=== PATIENT | male | born 1980 | race Caucasian/White ===

== ENCOUNTER 2016-08-01 11:31 | Outpatient (CLI) | payer BC ==
[~2016-08-01] VITALS: Ht 175.3 cm; Wt 105.2 kg
[~2016-08-01 11:31] MED LIST: MTH10T PO; ONDAN4ODT PO
[2016-08-01 11:47] VITALS: BP 139/90
[2016-08-01] MEDS ORDERED: METH10TA2 PO (11:51)
[2016-08-01] MEDS ORDERED: LISI10TA2 PO (11:51)
[2016-08-01 12:18] LABS: BASOPHILS % (AUTO) 1 % (0-10); EOSINOPHILS # (AUTO) 0.1 10^3/uL (0.0-0.3); EOSINOPHILS % (AUTO) 2 % (0-10); LYMPHOCYTES # (AUTO) 2.3 X 10^3 (1.0-4.0); LYMPHOCYTES % (AUTO) 38 % (12-44); MEAN CORPUSCULAR HEMOGLOBIN 26 PG (25-34); MEAN CORPUSCULAR HGB CONC 35 G/DL (32-36); MEAN CORPUSCULAR VOLUME 75 FL (80-99); MEAN PLATELET VOLUME 10.4 FL (7.4-10.4); MONOCYTES # (AUTO) 0.5 X 10^3 (0.0-1.0); MONOCYTES % (AUTO) 7 % (0-12); NEUTROPHILS # (AUTO) 3.3 X 10^3 (1.8-7.8); NEUTROPHILS % (AUTO) 52 % (42-75); PLATELET COUNT 214 10^3/uL (130-400); RED BLOOD COUNT 5.17 10^6/uL (4.35-5.85); RED CELL DISTRIBUTION WIDTH 13.9 % (10.0-14.5); WHITE BLOOD COUNT 6.2 10^3/uL (4.3-11.0)
== END 2016-08-01 12:00 | disposition home or self-care (01) ==
LOC: PREOP 11:31
PROVIDERS: ATTEND Surgery
DX: Z01.812 Encounter for preprocedural laboratory examination (principal); Z11.2 Encounter for screening for other bacterial diseases; K40.90 Unilateral inguinal hernia, without obstruction or gangrene, not specified as recurrent
CPT/HCPCS: 36415; 85025; 87081

== ENCOUNTER 2016-08-06 08:39 | Day surgery (SDC) | payer BC ==
[~2016-08-06] VITALS: Ht 175.3 cm; Wt 105.2 kg
[~2016-08-06 08:39] MED LIST changes: +LISI10TA2 PO; +METH10TA2 PO
[2016-08-06] MEDS ORDERED: proPOfol 200 MG/20 ML (DIPRIVAN) VIAL IV ONE (08:49)
[2016-08-06] MEDS ORDERED: LIDOCAINE PF 2% 10 ML (XYLOCAINE) AMP ONE (08:49)
[2016-08-06] MEDS ORDERED: fentaNYL INJECTION 100 MCG/2 ML AMP ONE (08:49)
[2016-08-06] MEDS ORDERED: ONDANSETRON 4 MG/2 ML (SDV) Z0FRAN ONE ×2 (08:49→11:01)
[2016-08-06] MEDS ORDERED: ROCURONIUM 50 MG/5 ML (ZEMURON) VIAL IV ONE (08:49)
[2016-08-06] MEDS ORDERED: LACTATED RINGERS 1,000 ML IV ONE ×2 (08:49→10:43)
[2016-08-06] MEDS ORDERED: MIDAZOLAM 2 MG/2 ML (VERSED) VIAL ONE (08:50)
[2016-08-06] MEDS ORDERED: ceFAZolin 2 GM/50 ML NS 50 ML IV ONE (08:54)
--- OUTSIDE RECORDS SUMMARY | 2016-08-06 08:56 | XMS REPORT | Continuity of Care Document ---
Author Author [facility] Organization [facility] Address Unknown Phone Unavailable Care Team Providers Care Box Liner Name Role Phone RYLEE GROVER MD PCP Insurance Providers Payer Name Policy Number Subscriber Name Relationship [facility] [id number] Юлия Espinoza L 01 Advance Directives Directive Response Recorded Date/Time Advance Directives No 08/01/16 11:48am Resuscitation Status Full Code 08/01/16 11:48am Problems Active Problems Medical Problem Onset Date Status Finger laceration Unknown Acute Medications Current Home Medications Medication Dose Units Route Directions Days/Qty Instructions Start Date Methadone Hcl 10 Mg 30 Mg Oral Daily take 3 (10mg) tabs 08/01/16 Lisinopril 10 Mg 10 Mg Oral Daily 08/01/16 Past Home Medications Medication Directions Ordered Status Methadone Hcl 10 Mg Tab, 4 Tab Oral Twice A Day 09/22/10 Discontinued Ondansetron Hcl 4 Mg Tab, 4 Mg Oral Every 4HRS 09/22/10 Discontinued Social History Social History Problem Response Recorded Date/Time Alcohol Use Denies Use 04/05/2015 12:01am Recreational Drug Use No 04/05/2015 12:01am Recent Foreign Travel No 08/01/2016 11:47am Recent Infectious Disease Exposure No 08/01/2016 11:47am Smoking Status Never a Smoker 08/01/2016 11:48am Do you dip or chew tobacco? No 04/05/2015 12:01am Recent Hopitalizations No 08/01/2016 11:48am Query Response Start Date Stop Date Smoking Status Never a Smoker Hospital Discharge Instructions No hospital discharge instructions. Plan of Care Discharge Date 08/01/16 12:00pm Prescriptions See Medication Section Functional Status No functional status results. Allergies, Adverse Reactions, Alerts Allergen Type Severity Reaction Status Last Updated Penicillins ([id number]) Allergy Unknown Active 04/05/15 Immunizations No immunization records. Vital Signs Acute Vital Signs Vital Response Date/Time Pulse Rate (adult) 80 bpm (60 - 90) 08/01/2016 11:47am O2 Sat by Pulse Oximetry 98 % (88 - 100) 08/01/2016 11:47am Blood Pressure 139/90 mm Hg 08/01/2016 11:47am Blood Pressure Mean 106 mm Hg 08/01/2016 11:47am Pain Numeric Pain Scale 2 08/01/2016 11:47am Height (Feet) 5 feet 08/01/2016 11:47am Height (Inches) 9.00 inches 08/01/2016 11:47am Height (Calculated Centimeters) 175.346040 cm 08/01/2016 11:47am Weight (Pounds) 232 pounds 08/01/2016 11:47am Weight (Ounces) 0.0 oz 08/01/2016 11:47am Weight (Calculated Grams) 530614.43 gm 08/01/2016 11:47am Weight (Calculated Kilograms) 105.509288 kilograms 08/01/2016 11:47am Calculated BMI 34.3 08/01/2016 11:47am Results Laboratory Results Test Name Result Units Flags Reference Collection Date/Time Result Date/ Time Comments White Blood Count 6.2 10^3/uL 4.3-11.0 08/01/2016 11:m 08/01/2016 12 :19pm Red Blood Count 5.17 10^6/uL 4.35-5.85 08/01/2016 11:m 08/01/2016 12 :19pm Hemoglobin 13.6 G/DL 13.3-17.7 08/01/2016 11:08/01/2016 12:19pm Hematocrit 39 % L 40-54 08/01/2016 11:17am 08/01/2016 12:19pm Mean Corpuscular Volume 75 FL L 80-99 08/01/2016 11:m 08/01/2016 12: 19pm Mean Corpuscular Hemoglobin 26 PG 25-34 08/01/2016 11:08/01/2016 12:19pm Mean Corpuscular Hemoglobin Concent 35 G/DL 32-36 08/01/2016 11: 12:19pm Red Cell Distribution Width 13.9 % 10.0-14.5 08/01/2016 11:2016 12:19pm Platelet Count 214 10^3/uL 130-400 08/01/2016 11:08/01/2016 12: 19pm Mean Platelet Volume 10.4 FL 7.4-10.4 08/01/2016 11:08/01/2016 12: 19pm Neutrophils (%) (Auto) 52 % 42-75 08/01/2016 11:08/01/2016 12: 19pm Lymphocytes (%) (Auto) 38 % 12-44 08/01/2016 11:08/01/2016 12: 19pm Monocytes (%) (Auto) 7 % 0-12 08/01/2016 11:08/01/2016 12:19pm Eosinophils (%) (Auto) 2 % 0-10 08/01/2016 11:08/01/2016 12:19pm Basophils (%) (Auto) 1 % 0-10 08/01/2016 11:08/01/2016 12:19pm Neutrophils # (Auto) 3.3 X 10^3 1.8-7.8 08/01/2016 11:08/01/2016 12:19pm Lymphocytes # (Auto) 2.3 X 10^3 1.0-4.0 08/01/2016 11:08/01/2016 12:19pm Monocytes # (Auto) 0.5 X 10^3 0.0-1.0 08/01/2016 11:08/01/2016 12: 19pm Eosinophils # (Auto) 0.1 10^3/uL 0.0-0.3 08/01/2016 11:08/01/2016 12:19pm Basophils # (Auto) 0.0 10^3/uL 0.0-0.1 08/01/2016 11:08/01/2016 12 :19pm Procedures No known history of procedures. Encounters Encounter Location Arrival/Admit Date Discharge/Depart Date Attending Provider Departed Clinic [facility] 08/01/16 11:31am 08/01/16 12: 00pm JULIA ENGEL DO
--- OUTSIDE RECORDS SUMMARY | 2016-08-06 08:56 | XMS REPORT | Continuity of Care Document ---
Author Author [facility] Organization [facility] Address Unknown Phone Unavailable Care Team Providers Care Custom Motorcycle Painter Name Role Phone RYLEE GROVER MD PCP Insurance Providers Payer Name Policy Number Subscriber Name Relationship [facility] [id number] Юлия Espinoza L 01 Advance Directives Directive [...] Type Severity Reaction Status Last Updated Penicillins ([id number]) Allergy Unknown Active 04/05/15 Immunizations No immunization [...] 9.00 inches 08/01/2016 11:47am Height (Calculated Centimeters) 175.204805 cm 08/01/2016 11:47am Weight (Pounds) 232 pounds 08/01/2016 11:47am Weight (Ounces) 0.0 oz 08/01/2016 11:47am Weight (Calculated Grams) 115983.43 gm 08/01/2016 11:47am Weight (Calculated Kilograms) 105.068973 kilograms 08/01/2016 11:47am Calculated BMI 34.3 08/01/2016 [...] Discharge/Depart Date Attending Provider Departed Clinic [facility] 08/01/16 11:31am 08/01/16 12: 00pm JULIA ENGEL DO
[2016-08-06] MEDS: LACTATED RINGERS 1,000 ML IV PRN ×2 (09:04→10:43)
[2016-08-06] MEDS ORDERED: ceFAZolin 2 GM/NS 50 ML IV ONE (09:15)
[2016-08-06] MEDS ORDERED: CATHETER FLUSH 10 ML SYR IV PRN (09:15)
[2016-08-06] MEDS ORDERED: LIDOCAINE/EPI 1%-1:100,000 (XYLOCAINE) 20ML ONE (09:17)
--- NOTE | 2016-08-06 10:11 | Progress Note-Pre Operative ---
Pre-Operative Progress Note H&P Reviewed The H&P was reviewed, patient examined and no changes noted. Date H&P Reviewed: Aug 06, 2016 Time H&P Reviewed: 10:06 Pre-Operative Diagnosis: Right inguinal hernia JULIA ENGEL DO Aug 06, 2016 10:11
[2016-08-06 10:12] VITALS: BP 148/95
[2016-08-06] MEDS ORDERED: fentaNYL INJECTION 250 MCG/5 ML AMP ONE (10:29)
[2016-08-06] MEDS ORDERED: SEVOFLURANE (ULTANE) 15 ML INHAL SOLN ONE (10:43)
--- NOTE | 2016-08-06 10:49 | Progress Note-Post Operative ---
Post-Operative Progess Note Structural Layout Worker Dr. Menendez Pre-Operative Diagnosis RIGHT INGUINAL HERNIA Post-Operative Diagnosis RIH - direct Post-Op Procedure Note Date of Procedure: Aug 06, 2016 Name of Procedure: RIH with mesh Anesthesia Type GET Estimated blood loss (mL): scant Packing: none Specimen(s) collected none JULIA ENGEL DO Aug 06, 2016 10:49
[2016-08-06] MEDS ORDERED: OXYC-464 PO (10:51)
[2016-08-06] MEDS ORDERED: NEOSTIGMINE (BLOXIVERZ ) 1 MG/1ML 10 ML VIAL ONE (10:53)
[2016-08-06] MEDS ORDERED: GLYCOPYRROLATE 0.2 MG/ML (ROBINUL) 2 ML VIAL ONE (10:53)
--- NOTE | 2016-08-06 10:54 | Discharge Inst-Surgical ---
Discharge Inst-Surgical Depart Medication/Instructions New, Converted or Re-Newed RX: RX Given to Pt/Family Patient Instructions Follow up Appt: Make appointment for 1 week. Call [phone] Instructions: No lifting greater than 10 pounds. No strenuous activity. May shower in 24 hours, no tub bath or soaking. Use incentive spirometer at home as directed. No Smoking Skin/Wound Care: May remove bandages. Dermabond will stay for a week or so. Symptoms to Report: Appetite Changes, Extremity Discoloration, Numbness/Tingling, Swelling Increased , Bleeding Excessive, Eyesight Changes, Pain Increased, Urine Color Change, Constipation(Persistent), Fever over 101 degree F, Pain/Pressure in chest, Urinating Difficulty, Cough Up/Vomit Blood, Heart Beat Irreg/Pounding, Pain/ Pressure in jaw, Vaginal Bleeding Increase, Cramps in feet or legs, Lightheadedness, Pain/Pressure in shoulder, Diarrhea(Persistent), Memory Changes Suddenly, Questions/Concerns, Weight gain consecutive days, Dizziness/ Fainting, Nausea/Vomiting, Shortness of Breath, Weight gain over 2 pounds If questions or concerns contact your physician Or seek help at emergency department. Activity Activity as Tolerated: Yes Activity Instructions: Avoid Stress to Incision Driving Instructions: No Driving for 1 Week No Driving When on Pain Meds: Yes Diet Discharge Diet: No Restrictions Diet for 24 Hours: No Alcohol If Any Problems/Questions/Issu: Contact Your Physician, Go to Emergency Room Skin/Wound Care Infection Signs and Symptoms: Increased Redness, Foul Odor of Wound, Increased Drainage, Increased Swelling, Temperature Above 101 F Bathing Instructions: Shower Stitches/Laila/Dermabond Dis: Dermabond Ice Pack: Ice On and Off Site JULIA ENGEL DO Aug 06, 2016 10:54
[2016-08-06] MEDS ORDERED: morphine INJ 10 MG/ML 1ML (SYR OR VIAL) ONE (11:01)
[2016-08-06] MEDS ORDERED: HYDROmorphone (DILAUDID) 2 MG/ML VIAL ONE (11:01)
[2016-08-06] MEDS: morphine INJ 10 MG/ML 1ML (SYR OR VIAL) IVP PRN ×3 (11:17→11:28)
[2016-08-06] MEDS: HYDROmorphone (DILAUDID) 2 MG/ML VIAL IVP PRN ×2 (11:34→11:46)
[2016-08-06] MEDS ORDERED: ONDANSETRON 4 MG/2 ML (SDV) Z0FRAN IVP PRN (11:45)
[2016-08-06] MEDS ORDERED: MEPERIDINE (DEMEROL) INJ 50 MG/ML IVP PRN (11:45)
[2016-08-06 12:10] VITALS: BP 143/83
[2016-08-06 12:40] VITALS: BP 133/83
[2016-08-06 13:10] VITALS: BP 136/86
--- NOTE | 2016-08-07 10:06 | OPERATIVE REPORT ---
PROCEDURE PHYSICIAN: JULIA GIFFORD DATE OF PROCEDURE: 08/06/2016 PREOPERATIVE DIAGNOSIS: Right inguinal hernia. POSTOPERATIVE DIAGNOSIS: Right inguinal hernia, direct. PROCEDURE: Right inguinal herniorrhaphy with mesh placement. SURGEON: Dr. Gifford OUTSOLE TACKER: Dr. Menendez. ANESTHESIA: General endotracheal tube with approximately 25 mL of local injected by myself. SPECIMEN: None. BLOOD LOSS: Scant. FLUIDS: Per anesthesia. POSTOPERATIVE: Stable. INDICATIONS FOR THE PROCEDURE: The patient is a 36-year-old male who had some pain in the right inguinal region with a bulge diagnosed with a right inguinal hernia. FINDINGS: The patient had a right direct inguinal hernia, floor defect, floor weakness. PROCEDURE NOTE: After informed consent was obtained patient brought to the operating room, placed on the table in supine position. He was sterilely prepped and draped in the normal fashion. Local lidocaine used for perform ilioinguinal nerve block as well as pubic tubercle block and then infiltrate right inguinal region with local. Made an incision with a number 15 blade, carried down through skin and subcutaneous tissue and deepened down to the subcutaneous tissue Bovie electrocautery, down to the fascia of the external oblique. External oblique fascia was infiltrated with local, then incised to the external inguinal ring with Bovie electrocautery. Then grasped the two sides of the hemostats and then able to dissect under the actual oblique fascia to create a space then grasped the cord and cord structures with a Lisette and then able to get under the cord and cord structures of the pubic tubercle. Placed a Mateo drain pulled in an inferolateral direction. Looked superiorly and medially did not find indirect hernia sac but there was a large floor defect and bulging coming up; this is a direct hernia. Elected to then close and kind of reinforce the floor of the inguinal canal used a 2-0 Vicryl. Two [id number] suture used to reinforce this and lay down nicely and then elected placed right sided Parietex mesh, trimmed the quarter inch off of each side and then sutured at the pubic tubercle and encircled the cord with a precut hole and placed the rest of the mesh up in the actual oblique fascia. It lay in nicely. The mesh went around through the precut hole. Then I recreated an internal inguinal ring. Copiously irrigated with normal saline, suctioned this out and then elected to close the external oblique fascia with 3-0 Vicryl running, recreating the external inguinal ring. Then closed the Moise's fascia with 3-0 Vicryl then closed the skin with 4-0 undyed Monocryl in subcuticular fashion. The area was clean and dried Dermabond placed dressings the patient then transferred to recovery room in stable condition. Sponges and instrument and needle correct at the end of the case. Dr. Menendez assisted, he helped hold the retractors, assisted with suturing and identify anatomy as the electrician station assistant. Job ID: [id number] Dictated Date: 08/06/2016 11:04:44 Otolaryngology Surgeon Date: 08/07/2016 09:47:49 / elly HASKINS
== END 2016-08-06 13:49 | disposition home or self-care (01) ==
LOC: SDC 08:39
PROVIDERS: ATTEND Surgery
DX: K40.90 Unilateral inguinal hernia, without obstruction or gangrene, not specified as recurrent (principal)
CPT/HCPCS: 94664

== ENCOUNTER 2022-07-25 05:37 | Outpatient (CLI) | payer BC, OTHER ==
[~2022-07-25] VITALS: Ht 172.7 cm; Wt 90.7 kg
[~2022-07-25 05:37] MED LIST changes: -LISI10TA2 PO; +LISI10TA25 PO; +METH-742 PO; -METH10TA2 PO; +OXYC1TAB15 PO
[2022-07-25] MEDS ORDERED: NF-ADXR10C PO (13:14)
== END 2022-07-25 13:16 ==
LOC: PREOP 05:37
PROVIDERS: ATTEND Internal Medicine
DX: Z01.818 Encounter for other preprocedural examination (principal)

== ENCOUNTER 2022-08-31 07:16 | Day surgery (SDC) | payer BC, OTHER ==
--- NOTE | 2022-07-23 16:43 | HISTORY AND PHYSICAL ---
COLONOSCOPY HISTORY AND PHYSICAL HISTORY OF PRESENT ILLNESS: The patient is being set up for screening colonoscopy due to strong family history for colon cancer. His father was diagnosed with colon cancer in his late 60s and he had a grandfather with colon cancer earlier in life than his father's although he was not sure exactly how old. He denies bright red blood per rectum, melena, abdominal pain or change in bowel habit. He was seen for followup of ADD and reports that he is doing pretty well on 5 mg of Adderall in the morning and 5 mg around 1 o'clock does not get him through to the end of his work day and he asked about increasing the dose. He reports no side effects. There has been no irritability. He reports that he feels much better, has more energy. It reduces his appetite and is allowed to weight loss and he notes that his home blood pressures have been lower. He does have a history of hypertension for which he has been off of medication due to weight loss. PHYSICAL EXAMINATION: GENERAL: Reveals a white male who appeared to be in no acute distress. VITAL SIGNS: Weight 200.4 pounds, down over 5 pounds. Blood pressure 120/86. HEENT: Unremarkable. Sclerae nonicteric. CHEST: Clear to auscultation. CARDIOVASCULAR: Reveals regular rate and rhythm without murmur, S3, or S4. ABDOMEN: Soft, supple without mass, organomegaly, or tenderness. EXTREMITIES: Show no cyanosis, clubbing or edema. ASSESSMENT AND PLAN: 1. The patient is being set up for screening colonoscopy need to be of higher than average risk due to strong family history for colon cancer. Prep instructions with Suprep kit were given and questions were answered. 2. ADD. We will continue 5 mg of Adderall in the morning and increase to 10 mg that he takes around 11 a.m. to 1:00 p.m. daily. 3. Hypertension, currently doing well, off medication, likely due to weight loss. Discussed the importance of regular physical activity. The patient has also been on methadone for pain control for many years, slowly tapering his dose. He has been on 10 mg daily for some time. Advised that he go down to 5. We tried to taper him off. Job ID: [id number] DocumentID: [id number] Dictated Date: 07/12/2022 16:18:44 Storage Architect Date: 07/12/2022 16:44:00 Dictated By: RYLEE GROVER MD
[~2022-08-31] VITALS: Ht 172 cm; Wt 90.7 kg
[~2022-08-31 07:16] MED LIST changes: +NF-ADXR10C PO
[2022-08-31] MEDS ORDERED: LACTATED RINGERS 1,000 ML IV STA (07:21)
[2022-08-31 07:30] VITALS: BP 136/95
[2022-08-31] MEDS ORDERED: MIDAZOLAM 2 MG/2 ML (VERSED) VIAL ONE (07:58)
[2022-08-31] MEDS ORDERED: PROPOFOL INJECTION 50 ML IV ONE (07:58)
--- NOTE | 2022-08-31 07:59 | Pre-Op Note & Conscious Sedat ---
Pre-Operative Progress Note Date H&P Reviewed: Aug 31, 2022 Time H&P Reviewed: 07:45 History & Physical: H&P Reviewed, Patient Examed, No changes noted Pre-Op Diagnosis: screening Moderate Sedation PreProcedure ASA Score 2 Airway Lungs Heart ASA score ASA 1: a normal healthy patient ASA 2: a patient with a mild systemic disease (mid diabetes, controlled hypertension, obesity ASA 3: a patient with a severe systemic disease that limits activity (angina, COPD, prior Myocardial infarction) ASA 4: a patient with an incapacitating disease that is a constant threat to life (CHF, renal failure) ASA 5: a moribund patient not expected to survive 24 hrs. (ruptured aneurysm) ASA 6: a declared brain- patient whose organs are being harvested. For emergent operations, add the letter E after the classification Mallampati Classification Grade 2 Sedation Plan Analgesia, Amnesia, Plan communicated to team members, Discussed options with patient/fam, Discussed risks with patient/fam The patient is an appropriate candidate to undergo the planned procedure, sedation, and anesthesia. The patient immediately re-assessed prior to indication. RYLEE GROVER MD Aug 31, 2022 07:59
[2022-08-31 08:30] VITALS: BP 101/63
--- NOTE | 2022-08-31 08:33 | Progress Note-Post Operative ---
Post-Procedure Note Physician (s)/Fire Marshal (s) Physician RYLEE GROVER MD Pre-Procedure Diagnosis Pre-Procedure Diagnosis: screening Post-Procedure Diagnosis Post-operative diagnosis: Prior to undergoing colonoscopy digital rectal evaluation was performed. Anal sphincter tone was normal and the perianal reflexes intact. Prostate is small and a nodular digital inspection. No abnormalities noted on digital inspection anal canal or distal rectal vault. The colonoscope was then inserted into the rectum and under direct visualization advanced to the cecum. The cecum was identified by identification of the ileocecal valve and the cecal strap. Photographic documentation was obtained. Quality the prep was good. Findings: There were no evidence for internal or external hemorrhoids. The rectum sigmoid colon descending colon splenic flexure transverse colon hepatic flexure ascending colon and cecum were unremarkable with no evidence for neoplasia diverticular disease or other abnormality. Assessment normal colonoscopy to the cecum. We will advocate repeat screening colonoscopy at 51 years of age. RYLEE GROVER MD Aug 31, 2022 08:33
[2022-08-31 08:35] VITALS: BP 112/64
[2022-08-31 08:48] VITALS: BP 112/64
--- NOTE | 2022-08-31 10:30 | Anesthesia-General Post-Op ---
MAC Patient Condition Mental Status/LOC: Same as Preop Cardiovascular: Satisfactory Nausea/Vomiting: Absent Respiratory: Satisfactory Pain: Controlled Complications: Absent Post Op Complications Complications None Follow Up Care/Instructions Patient Instructions None needed. Anesthesiology Discharge Order Discharge Order Patient is doing well, no complaints, stable vital signs, no apparent adverse anesthesia problems. No complications reported per nursing. TOBIN ROSAS CRNA Aug 31, 2022 10:30
== END 2022-08-31 09:00 | disposition home or self-care (01) ==
LOC: ENDO 07:16
PROVIDERS: ATTEND Internal Medicine
DX: Z12.11 Encounter for screening for malignant neoplasm of colon (principal); F98.8 Other specified behavioral and emotional disorders with onset usually occurring in childhood and adolescence; I10 Essential (primary) hypertension; G89.29 Other chronic pain; Z80.0 Family history of malignant neoplasm of digestive organs; Z79.891 Long term (current) use of opiate analgesic; Z79.899 Other long term (current) drug therapy